=== PATIENT | male | born 1960 | race Caucasian/White ===

== ENCOUNTER 2023-01-02 06:00 | Day surgery (SDC) | payer BC, OTHER ==
[2022-12-26 10:48] VITALS: BMI 25.8
[2023-01-02 07:41] LABS: INR 1.12 (0.83-1.09)
[2023-01-02 07:44] LABS: ACTIVATED PTT 32.2 SECONDS (25.2-36.5)
[2023-01-02] MEDS ORDERED: ceFAZolin SODIUM 1 GM VIAL IVPB ONE (08:19)
[2023-01-02] MEDS ORDERED: LIDOCAINE HCL 1%, 10 MG/ML (20ML VIAL) INF ONE ×2 (08:34→08:39)
[2023-01-02] MEDS ORDERED: BUPIVACAINE HCL 0.5% 250 MG/50 ML VIAL NR ONE ×2 (08:34→08:39)
[2023-01-02 11:36] VITALS: BP 124/78; PULSE 78; RESP 18; TEMP 98.4
== END 2023-01-02 10:45 | disposition home or self-care (01) ==
LOC: JASU-SURG 06:00
PROVIDERS: ATTEND Orthopaedic Surgery
PROC: 0LN70ZZ Release Right Hand Tendon, Open Approach (ICD-10-PCS; principal; 2023-01-02 08:00)
DX: M65.331 Trigger finger, right middle finger (principal)
CPT/HCPCS: 36415; 85610; 85730; 88304-TC

== ENCOUNTER 2023-01-26 04:17 | Day surgery (SDC) | payer OTHER, BC ==
[2023-01-24 14:08] VITALS: BMI 26.6
[2023-01-26 07:49] VITALS: RESP 18
[2023-01-26] MEDS ORDERED: MIDAZOLAM HCL 2 MG/2 ML SINGLE DOSE VIAL ONE (10:11)
[2023-01-26] MEDS ORDERED: PROPOFOL 40 ML ONE (10:11)
[2023-01-26] MEDS ORDERED: ONDANSETRON 4 MG/2 ML VIAL ONE (11:57)
[2023-01-26] MEDS ORDERED: KETOROLAC TROMETHAMINE 30 MG/1 ML VIAL ONE (11:57)
[2023-01-26] MEDS ORDERED: DEXAMETHASONE SOD PHOSPHATE 4 MG/1 ML VIAL ONE (11:57)
[2023-01-26] MEDS ORDERED: ceFAZolin SODIUM 1 GM VIAL ONE (11:57)
[2023-01-26] MEDS ORDERED: ceFAZolin SODIUM 1 GM VIAL IVPB ONE (12:00)
[2023-01-26] MEDS ORDERED: LIDOCAINE HCL 1%, 10 MG/ML (20ML VIAL) INF ONE ×2 (12:11)
[2023-01-26] MEDS ORDERED: BUPIVACAINE HCL/PF 0.5% (5MG/ML) 10 ML VIAL NR ONE ×2 (12:11)
[2023-01-26 15:30] VITALS: PULSE 50
[2023-01-26 15:36] VITALS: BP 133/75; TEMP 97
== END 2023-01-26 13:25 | disposition home or self-care (01) ==
LOC: JASU-SURG 04:17
PROVIDERS: ATTEND Orthopaedic Surgery
PROC: 0LN80ZZ Release Left Hand Tendon, Open Approach (ICD-10-PCS; principal; 2023-01-26 10:00)
DX: M65.332 Trigger finger, left middle finger (principal)
CPT/HCPCS: 88304-TC